=== PATIENT | male | born 1990 | race African-American/Black ===

== ENCOUNTER 2017-02-02 06:13 | Emergency (ER) | payer SELFPAY ==
[~2017-02-02] VITALS: Ht 175.3 cm; Wt 99.8 kg
[2017-02-02] MEDS ORDERED: VENTOLIN HFA18 GM INH (06:20)
[2017-02-02 06:30] VITALS: BP 145/82
[2017-02-02] MEDS ORDERED: DiphenhydrAMINE 50mg/ml Inj IVP ONE (06:30)
[2017-02-02] MEDS ORDERED: EPINEPHrine 1mg/1ml Amp IM ONE (06:30)
[2017-02-02] MEDS ORDERED: Solu-MEDROL 125mg Inj IVP ONE (06:30)
--- NOTE | 2017-02-02 06:30 | Emergency Room Report ---
History of Present Illness General Chief Complaint: Allergic Reaction Source: Patient Present Illness HPI Patient presents with 20 minutes of itching and feeling like his throat is closing. He was exposed to nuts. Has an allergy to nuts. Usually uses the EpiPen but had run out 2 months ago. This not his worst attack. He came in early. Denies any fevers, chills, vomiting, wheezing, dyspnea. He does feel somewhat nauseated. No QUINTANILLA or dizziness. No chest, abd or body pain. Somewhat anxious. Allergies: Uncoded Allergies: NUTS (Allergy, Mild, 02/02/17) Patient History Past Medical History: see triage record Social History: Denies: smoking Social History Narrative at home Reviewed Nursing Documentation: PMH: Agreed, PSxH: Agreed Nursing Documentation-PMH Hx Asthma: Yes Review of Systems All Other Systems: negative except mentioned in HPI Physical Exam Vital Signs Date Time Temp Pulse Resp B/P Pulse Ox O2 Delivery O2 Flow Rate FiO2 02/02/17 06:17 98.1 70 14 133/88 100 Room Air Sp02 EP Interpretation: reviewed, normal General Appearance: well appearing, no apparent distress, GCS 15 Head: normocephalic, atraumatic Eyes: bilateral eye PERRL, bilateral eye normal inspection ENT: moist mucus membranes Neck: supple Respiratory: lungs clear, normal breath sounds Cardiovascular #1: regular rate, rhythm Cardiovascular #2: 2+ radial (R) Gastrointestinal: normal inspection, normal bowel sounds, non tender, no mass, non-distended Musculoskeletal: back normal, gait/station normal, normal range of motion Neurologic: alert, oriented x3, grossly normal Skin: warm/dry, other - Minimal erythroderma Medical Decision Making Diagnostic Impression: Primary Impression: Allergic reaction Qualified Codes: T78.40XA - Allergy, unspecified, initial encounter ER Course Patient presents with allergic reaction symptoms. Differential includes anaphylaxis, urticaria, allergic reaction, anxiety amongst others. He will be treated with IM epinephrine, some IV Solu-Medrol, Benadryl. He will be observed on the monitoring and evaluation advisor. EKG and labs will be obtained. Aggressive treatment is indicated. He was reevaluated at 7:55 AM. He states he caught the allergy early enough and he feels stable at this point. Labs are unremarkable aside from eosinophilia. The patient is improved and stable for outpatient observation and treatment. He 'll be given a prescription for an epinephrine and along with prednisone and Benadryl. Laboratory Tests Test 02/02/17 06:40 White Blood Count 5.2 K/UL (4.8-10.8) Red Blood Count 5.19 M/UL (4.70-6.10) Hemoglobin 15.2 G/DL (14.2-18.0) Hematocrit 47.0 % (42.0-52.0) Mean Corpuscular Volume 91 FL (80-99) Mean Corpuscular Hemoglobin 29.3 PG (27.0-31.0) Mean Corpuscular Hemoglobin Concent 32.4 G/DL (32.0-36.0) Red Cell Distribution Width 12.6 % (11.6-14.8) Platelet Count 308 K/UL (150-450) Mean Platelet Volume 7.5 FL (6.5-10.1) Neutrophils (%) (Auto) 33.2 % (45.0-75.0) L Lymphocytes (%) (Auto) 52.7 % (20.0-45.0) H Monocytes (%) (Auto) 8.6 % (1.0-10.0) Eosinophils (%) (Auto) 3.8 % (0.0-3.0) H Basophils (%) (Auto) 1.6 % (0.0-2.0) Sodium Level 140 mEQ/L (135-145) Potassium Level 4.0 mEQ/L (3.4-4.9) Chloride Level 102 mEQ/L (98-107) Carbon Dioxide Level 27 mEQ/L (20-30) Anion Gap 11 (5-15) Blood Urea Nitrogen 20 mg/dL (7-23) Creatinine 1.2 mg/dL (0.7-1.2) Estimate Glomerular Filtration Rate > 60 mL/min (>60) Glucose Level 94 mg/dL (74-106) Calcium Level 9.6 mg/dL (8.6-10.2) Total Bilirubin < 0.2 mg/dL (0.0-1.2) Aspartate Amino Transferase (AST) 17 U/L (5-40) Alanine Aminotransferase (ALT) 21 U/L (3-41) Alkaline Phosphatase 50 U/L (40-129) Total Creatine Kinase 156 U/L (38-174) Total Protein 7.6 g/dL (6.6-8.7) Albumin 4.6 g/dL (3.5-5.2) Globulin 3.0 g/dL Albumin/Globulin Ratio 1.5 (1.0-2.7) EKG Diagnostic Results Rate: normal Rhythm: NSR ST Segments: no acute changes Rhythm Strip Diag. Results EP Interpretation: yes Rhythm: NSR, no PVC's, no ectopy Last Vital Signs Date Time Temp Pulse Resp B/P Pulse Ox O2 Delivery O2 Flow Rate FiO2 02/02/17 08:20 98.1 61 24 104/51 97 Room Air Status: improved Disposition: HOME, SELF-CARE Condition: Improved Scripts Epinephrine (Epipen 2-Matias) 0.3 Mg/0.3 Ml Auto.injct 0.3 MG IM NEEDED, #1 EA 2 Refills Prov: Adams Howard M.D. 02/02/17 Diphenhydramine Hcl* (BENADRYL*) 25 Mg Capsule 25 MG ORAL Q6H Y for Itching, #14 CAP Prov: Adams Howard M.D. 02/02/17 Prednisone* (PREDNISONE*) 20 Mg Tablet 20 MG ORAL DAILY for 5 Days, #5 TAB Prov: Adams Howard M.D. 02/02/17 Adams Howard M.D. Feb 02, 2017 06:30
[2017-02-02 07:08] LABS: BASOPHILS % (AUTO) 1.6 % (0.0-2.0); EOSINOPHILS % (AUTO) 3.8 % (0.0-3.0); LYMPHOCYTES % (AUTO) 52.7 % (20.0-45.0); MEAN CORPUSCULAR HEMOGLOBIN 29.3 PG (27.0-31.0); MEAN CORPUSCULAR HGB CONC 32.4 G/DL (32.0-36.0); MEAN CORPUSCULAR VOLUME 91 FL (80-99); MEAN PLATELET VOLUME 7.5 FL (6.5-10.1); MONOCYTES % (AUTO) 8.6 % (1.0-10.0); NEUTROPHILS % (AUTO) 33.2 % (45.0-75.0); PLATELET COUNT 308 K/UL (150-450); RED BLOOD COUNT 5.19 M/UL (4.70-6.10); RED CELL DISTRIBUTION WIDTH 12.6 % (11.6-14.8); WHITE BLOOD COUNT 5.2 K/UL (4.8-10.8)
[2017-02-02 07:22] LABS: ALANINE AMINOTRANSFERASE 21 U/L (3-41); ALBUMIN/GLOBULIN RATIO 1.5 (1.0-2.7); ANION GAP 11 (5-15); ASPARTATE AMINO TRANSFERASE 17 U/L (5-40); CALCIUM 9.6 mg/dL (8.6-10.2); CARBON DIOXIDE 27 mEQ/L (20-30); CHLORIDE 102 mEQ/L (98-107); CREATININE 1.2 mg/dL (0.7-1.2); GLOMERULAR FILTRATION RATE > 60 mL/min (>60); HEMOLYSIS 10; SODIUM 140 mEQ/L (135-145); TOTAL PROTEIN 7.6 g/dL (6.6-8.7)
[2017-02-02 07:44] VITALS: BP 104/51
[2017-02-02] MEDS ORDERED: EPIPEN 2-P0.3 MG/0.3 IM (07:58)
[2017-02-02] MEDS ORDERED: BENADRYL25 MG ORAL (07:58)
[2017-02-02] MEDS ORDERED: PREDNISONE20 MG ORAL (07:58)
[2017-02-02 08:20] VITALS: BP 104/51
--- NOTE | 2017-02-02 16:42 | Cardiology Report ---
APPROVED REPORT EKG Measurement Heart [id number] FL [id number] Normal sinus rhythm Septal infarct, age undetermined Abnormal ECG
== END 2017-02-02 08:50 | disposition home or self-care (01) ==
LOC: EMR 06:51
DX: T78.40XA Allergy, unspecified, initial encounter (principal); X58.XXXA Exposure to other specified factors, initial encounter; Z91.018 Allergy to other foods; R11.0 Nausea; L53.9 Erythematous condition, unspecified
CPT/HCPCS: 36415; 80053; 82550; 85025; 93005; 96372; 96374; 96375; 99284; J0171; J1200; J2405; J2930